=== PATIENT | male | born 1980 | race Two or more races ===

== ENCOUNTER 2025-02-24 09:34 | Emergency (ER) | payer OTHER ==
[~2025-02-24] VITALS: Ht 177.8 cm; Wt 61.2 kg
[~2025-02-24 09:34] MED LIST: ASTEPRO205.5 MCG/; CLONAZEPAM0.5 MG; FLONASE16 G1
[2025-02-24 09:54] VITALS: BP 131/82; O2SAT 96
== END 2025-02-24 10:44 | disposition home or self-care (01) ==
LOC: ER 09:37
DX: I10 Essential (primary) hypertension (principal); F41.9 Anxiety disorder, unspecified; Z88.6 Allergy status to analgesic agent

== ENCOUNTER → 2025-10-23 | Emergency (ER) | payer OTHER ==
[~2025-10-23] VITALS: Ht 177.8 cm; Wt 63.5 kg
[~2025-10-23] MED LIST changes: +FLONASE16 GM NASAL; +SINGULAIR5 MG PO; +ZYRTEC10 MG PO
[2025-10-23 16:15] LABS: BASO % 0.6 % (0.1-1.2); EOS # 0.06 (0.04-0.54); EOS % 1.0 % (0.7-7.0); LYMPH # 1.20 (1.18-3.74); LYMPH % 19.4 % (19.3-53.1); MEAN PLATELET VOLUME 9.00 fl (9.4-12.4); MONO # 0.21 (0.24-0.82); MONO % 3.4 % (4.7-12.5); NEUT # 4.66 (1.56-6.13); NEUT % 75.4 % (34.0-71.1); RED CELL DISTRIBUTION WIDTH 12.4 % (11.6-14.4)
== END | disposition home or self-care (01) ==
LOC: ER 13:51
PROVIDERS: General Practice
DX: J32.4 Chronic pansinusitis (principal); H93.8X1 Other specified disorders of right ear; Z88.6 Allergy status to analgesic agent